=== PATIENT | male | born 1965 | race Caucasian/White ===

== ENCOUNTER 2023-06-15 00:25 | Inpatient (IN) | payer OTHER ==
[~2023-06-15] VITALS: Ht 182.9 cm; Wt 102.1 kg
[2023-06-15] VITALS (18 sets, daily range): BP systolic 118–159; BP diastolic 70–100; PULSE 71–108; RESP 15–36; TEMP 97.4–98; O2SAT 93–100
[2023-06-15] MEDS: NACL 0.9% 1,000 ML IV ONE (01:26)
[2023-06-15 01:32] LABS: BASOPHILS # (AUTO) 0.1 K/uL (0.00-0.22); EOSINOPHILS # (AUTO) 0.1 K/uL (0-0.4); EOSINOPHILS % (AUTO) 0.6 % (0.0-4.0); HEMATOCRIT 53.4 % (36-52); HEMOGLOBIN 17.9 g/dL (12.0-18.0); LYMPHOCYTES # (AUTO) 1.8 K/uL (2.0-11.5); LYMPHOCYTES % (AUTO) 15.5 % (20.5-51.1); MEAN CORPUSCULAR HEMOGLOBIN 30 pg (27-31); MEAN CORPUSCULAR HGB CONC 34 g/dL (33-37); MEAN CORPUSCULAR VOLUME 89.7 fL (80-94); MONOCYTES # (AUTO) 0.8 K/uL (0.8-1.0); NEUTROPHILS # (AUTO) 8.6 K/uL (1.8-7.7); NEUTROPHILS % (AUTO) 75.9 % (42.2-75.2); PLATELET COUNT (AUTO) 270 K/uL (140-450); RED BLOOD CELL COUNT(AUTO) 5.95 MIL/uL (4.20-6.10); RED CELL DISTRIBUTION WIDTH 13.5 % (11.6-13.7); WHITE BLOOD COUNT (AUTO) 11.4 K/uL (4.8-10.8)
[2023-06-15 01:57] LABS: ALBUMIN 3.8 g/dL (3.4-5.0); ANION GAP 27.6 (8-16); CALCIUM 9.6 mg/dL (8.5-10.1); CARBON DIOXIDE 14.1 mmol/L (21-32); POTASSIUM 5.7 mmol/L (3.5-5.1); TOTAL BILIRUBIN 0.8 mg/dL (0.0-1.0); TOTAL PROTEIN, SERUM 8.8 g/dL (6.4-8.2)
[2023-06-15] MEDS ORDERED: ONDANSETRON 4 MG/2 ML VIAL ONE (02:15)
[2023-06-15] MEDS: ONDANSETRON 4 MG/2 ML VIAL IVP ONE (02:26)
[2023-06-15] MEDS: INSULIN REGULAR, HUMAN 100 UNIT in NACL 0.9% 100 ML IV ONE (02:59)
[2023-06-15 03:12] LABS: BLOOD GAS HCO3 8.6 mmol/L (22-26); BLOOD GAS PCO2 20.9 mmHg (35-45); BLOOD GAS PH 7.232 (7.35-7.45); BLOOD GAS PO2 90.6 mmHg (75-100)
[2023-06-15 03:13] LABS: BLOOD GAS BASE EXCESS -16.3 mmol/L (-2.0-2.0)
[2023-06-15 03:14] LABS: BLOOD GAS O2 SAT% 96.1 % (92.0-98.5); FRACTIONATED INSPIRED OXYGEN 0.21 % (0.21-100.00)
[2023-06-15] MEDS: FAMOTIDINE 20 MG/2 ML VIAL IVP ONE (03:24)
[2023-06-15] MEDS: ALUMINUM HYD/MAG/SIMETHICONE 30 ML UDC PO ONE (03:25)
[2023-06-15] MEDS ORDERED: DEXTROSE 50% 50 ML SYR IVP PRN (03:50)
[2023-06-15] MEDS: BLOOD GLUCOSE MONITORING 1 DEV DEV FS SCH (03:58)
[2023-06-15 05:18] LABS: BLOOD GAS PCO2 32.7 mmHg (35-45); BLOOD GAS PH 7.209 (7.35-7.45); BLOOD GAS PO2 41.9 mmHg (75-100)
[2023-06-15 05:19] LABS: BLOOD GAS BASE EXCESS -13.7 mmol/L (-2.0-2.0); BLOOD GAS HCO3 12.8 mmol/L (22-26)
[2023-06-15 05:20] LABS: FRACTIONATED INSPIRED OXYGEN 0.21 % (0.21-100.00)
[2023-06-15 05:36] LABS: ANION GAP 27.6 (8-16); CALCIUM 9.2 mg/dL (8.5-10.1); CREATININE 1.7 mg/dL (0.6-1.3); MAGNESIUM 2.3 mg/dL (1.8-2.4); PHOSPHORUS 4.6 mg/dL (2.5-4.9); POTASSIUM 4.6 mmol/L (3.5-5.1)
[2023-06-15 08:33] LABS: ANION GAP 19.4 (8-16); CALCIUM 9.4 mg/dL (8.5-10.1); CREATININE 1.6 mg/dL (0.6-1.3); POTASSIUM 4.4 mmol/L (3.5-5.1)
[2023-06-15 08:44] LABS: MAGNESIUM 2.5 mg/dL (1.8-2.4)
[2023-06-15] MEDS: MEDS-TO-BEDS MC SCH (09:00)
[2023-06-15] MEDS: DEXT 5% / NACL 0.45% 1,000 ML IV SCH (10:05)
[2023-06-15] MEDS: NACL 0.9% 1,000 ML IV SCH (10:51)
[2023-06-15 12:30] LABS: ANION GAP 13.8 (8-16); CALCIUM 9.1 mg/dL (8.5-10.1); CARBON DIOXIDE 24.1 mmol/L (21-32); CREATININE 1.5 mg/dL (0.6-1.3); POTASSIUM 3.9 mmol/L (3.5-5.1)
[2023-06-15 12:40] LABS: MAGNESIUM 2.4 mg/dL (1.8-2.4); PHOSPHORUS 2.8 mg/dL (2.5-4.9)
[2023-06-15] MEDS: INSULIN REGULAR, HUMAN 100 UNIT in NACL 0.9% 100 ML IV SCH (13:01)
[2023-06-15] MEDS ORDERED: KCL 20 MEQ IN 100 mL PREMIX 200 ML IV PRN (13:40)
[2023-06-15 16:37] LABS: ANION GAP 10.8 (8-16); CALCIUM 8.5 mg/dL (8.5-10.1); CARBON DIOXIDE 23.9 mmol/L (21-32); CREATININE 1.3 mg/dL (0.6-1.3); POTASSIUM 3.7 mmol/L (3.5-5.1)
[2023-06-15 16:40] LABS: MAGNESIUM 2.2 mg/dL (1.8-2.4)
[2023-06-15] MEDS ORDERED: MAG SULF 2000 MG/WATER PREMIX 50 ML IV PRN (18:40)
[2023-06-15 22:23] LABS: ANION GAP 12.1 (8-16); CALCIUM 8.6 mg/dL (8.5-10.1); CARBON DIOXIDE 23.2 mmol/L (21-32); CREATININE 1.1 mg/dL (0.6-1.3); POTASSIUM 3.3 mmol/L (3.5-5.1)
[2023-06-15 22:25] LABS: MAGNESIUM 2.3 mg/dL (1.8-2.4); PHOSPHORUS 1.4 mg/dL (2.5-4.9)
[2023-06-16] VITALS (11 sets, daily range): BP systolic 122–155; BP diastolic 56–110; PULSE 68–85; RESP 16–31; TEMP 97–98.9; O2SAT 92–99
[2023-06-16] MEDS ORDERED: INSULIN LANTUS 100 UNITS/ML 10 ML VIAL SUBQ SCH
[2023-06-16] MEDS: POTASSIUM CHLORIDE 10 MEQ TABER PO PRN (00:04)
[2023-06-16] MEDS: INSULIN LANTUS 100 UNITS/ML 10 ML VIAL SUBQ SCH ×2 (00:08→06:38)
[2023-06-16 05:30] LABS: BASOPHILS # (AUTO) 0.1 K/uL (0.00-0.22); BASOPHILS % (AUTO) 0.5 % (0.0-2.0); EOSINOPHILS # (AUTO) 0.1 K/uL (0-0.4); EOSINOPHILS % (AUTO) 0.8 % (0.0-4.0); HEMATOCRIT 43.3 % (36-52); HEMOGLOBIN 15.3 g/dL (12.0-18.0); LYMPHOCYTES # (AUTO) 1.7 K/uL (2.0-11.5); LYMPHOCYTES % (AUTO) 12.9 % (20.5-51.1); MEAN CORPUSCULAR HEMOGLOBIN 30 pg (27-31); MEAN CORPUSCULAR HGB CONC 35 g/dL (33-37); MEAN CORPUSCULAR VOLUME 85.6 fL (80-94); MONOCYTES # (AUTO) 1.2 K/uL (0.8-1.0); MONOCYTES % (AUTO) 8.9 % (1.7-9.3); NEUTROPHILS % (AUTO) 76.9 % (42.2-75.2); PLATELET COUNT (AUTO) 199 K/uL (140-450); RED BLOOD CELL COUNT(AUTO) 5.06 MIL/uL (4.20-6.10); RED CELL DISTRIBUTION WIDTH 13.5 % (11.6-13.7); WHITE BLOOD COUNT (AUTO) 13.1 K/uL (4.8-10.8)
[2023-06-16 05:57] LABS: ANION GAP 14.3 (8-16); CALCIUM 8.5 mg/dL (8.5-10.1); CARBON DIOXIDE 21.2 mmol/L (21-32); POTASSIUM 4.5 mmol/L (3.5-5.1)
[2023-06-16] MEDS: BLOOD GLUCOSE MONITORING 1 DEV DEV FS SCH (06:32)
[2023-06-16] MEDS: INSULIN LISPRO SLIDING SCALE 100 UNITS/ML VIAL SUBQ PRN (06:34)
[2023-06-16] MEDS: amLODIPine 5 MG TAB PO SCH (09:49)
== END 2023-06-16 15:00 | disposition home or self-care (01) | DRG 420 ==
LOC: MED 00:25 → MMU 03:48 → MIC 03:48 → MTU 06-16 05:35
PROVIDERS: ADMIT Hospitalist; ATTEND Hospitalist
DX: E10.10 Type 1 diabetes mellitus with ketoacidosis without coma (principal); N17.9 Acute kidney failure, unspecified; E86.0 Dehydration; R65.10 Systemic inflammatory response syndrome (SIRS) of non-infectious origin without acute organ dysfunction; E78.5 Hyperlipidemia, unspecified; I10 Essential (primary) hypertension; Z91.199 Patient's noncompliance with other medical treatment and regimen due to unspecified reason; Z79.899 Other long term (current) drug therapy
CPT/HCPCS: 36415; 80048; 80053; 82948; 83690; 83735; 84100; 85025; 87081; J1815; J2405; J3490